=== PATIENT | female | born 1935 | race Hispanic/Latino ===

== ENCOUNTER 2022-10-13 08:59 | Emergency (ER) | payer OTHER | END 2022-10-13 10:39 | disposition home or self-care (01) | LOC: BURERS 08:59 | DX: S20.212A Contusion of left front wall of thorax, initial encounter (principal); I10 Essential (primary) hypertension; W01.0XXA Fall on same level from slipping, tripping and stumbling without subsequent striking against object, initial encounter | CPT/HCPCS: 71250 ==

== ENCOUNTER 2022-12-25 11:19 | Emergency (ER) | payer OTHER | END 2022-12-25 11:46 | disposition home or self-care (01) | LOC: BURERS 11:19 | DX: B34.9 Viral infection, unspecified (principal); I10 Essential (primary) hypertension | CPT/HCPCS: 99283 ==

== ENCOUNTER 2023-09-18 12:15 | Emergency (ER) | payer OTHER ==
[2023-09-18 12:58] LABS: #Basophils 0.1 thou/uL (0.0-0.2); #Eosinphils 0.1 thou/uL (0.0-0.7); #Lymphocytes 1.8 thou/uL (1.20-3.40); #Monocytes 0.4 thou/uL (0.11-0.59); #Neutrophils 2.4 thou/uL (1.40-6.50); %Basophils 1.3 % (0.0-1.0); %Lymphocytes 37.7 % (21.0-51.0); %Monocytes 8.3 % (0.0-10.0); %Neutrophils 50.7 % (42.0-75.0); Hematocrit 39.7 % (36.0-47.0); Hemoglobin 12.6 g/dL (12.0-16.0); Mean Corpuscular HGB CONC 31.6 g/dL (32.0-36.0); Mean Platelet Volume 8.8 fL (7.4-10.4); Platelet Count 180 10x3/uL (130-400); RBC Distribution Width 11.8 % (11.5-14.5); Red Blood Cell (RBC) Count 4.05 mill/uL (4.20-5.40); White Blood Cell (WBC) Count 4.8 10x3/uL (4.8-10.8)
[2023-09-18 13:15] LABS: ALT (SGPT) 15 U/L (8-55); AST (SGOT) 17 U/L (5-34); Albumin 3.8 g/dL (3.4-4.8); Alkaline Phosphatase 53 U/L (40-110); Anion Gap 13 mmol/L (10-20); BUN (Urea Nitrogen) 21 mg/dL (9.8-20.1); Bilirubin, Total 0.5 mg/dL (0.2-1.2); Calc. Creatinine Clearance 0 mL/min (70-130); Calcium 8.6 mg/dL (7.8-10.44); Carbon Dioxide 24 mmol/L (23-31); Chloride 104 mmol/L (98-107); Estimated GFR 78; Globulin 3.4 g/dL (2.4-3.5); Glucose 127 mg/dL (83-110); Potassium 3.9 mmol/L (3.5-5.1); Protein, Total 7.2 g/dL (5.8-8.1); Sodium 137 mmol/L (136-145)
[2023-09-18 13:16] LABS: Troponin I 0.012 ng/mL (< 0.028)
[2023-09-18 13:47] LABS: Bilirubin Negative (Negative); Blood, Urine Trace (Negative); Clarity Cloudy (Clear); Glucose, Urine (Dipstick) Negative (Negative); Ketone, Urine Negative (Negative); Leukocyte Moderate (Negative); Nitrite Negative (Negative); Protein, Urine (Dipstick) Negative (Neg-Trace)
[2023-09-18 13:53] LABS: Bacteria/HPF 3+ HPF (None Seen); CAUTI Indications for Culture Dysuria,urgency,freq; Mucous/LPF 1+ LPF (<2+); RBC/HPF 0-3 HPF (0-3)
[2023-09-18 13:54] LABS: Urine Culture Reflex No No
== END 2023-09-18 15:59 | disposition short-term general hospital (02) ==
LOC: BURERS 12:15
DX: R53.1 Weakness (principal); I10 Essential (primary) hypertension
CPT/HCPCS: 70450; 71045; 80053; 81001; 84484; 85025; 93005

== ENCOUNTER 2023-10-08 10:58 | Emergency (ER) | payer OTHER ==
[2023-10-08] MEDS ORDERED: Dexamethasone 10 MG/ML VIAL ONE (11:54)
[2023-10-08] MEDS ORDERED: Dexamethasone 4 MG TAB ONE (11:55)
[2023-10-08 12:02] LABS: Influenza A by NAA Not Detected (NotDetected); Influenza B by NAA Not Detected (NotDetected); SARS-CoV-2 NAA Rapid Test Not Detected (NotDetected)
== END 2023-10-08 12:33 | disposition home or self-care (01) ==
LOC: BURERS 10:58
DX: J02.9 Acute pharyngitis, unspecified (principal); I10 Essential (primary) hypertension; Z79.82 Long term (current) use of aspirin; Z79.899 Other long term (current) drug therapy
CPT/HCPCS: 87081; 87430; 99284; J1100; J8540

== ENCOUNTER 2025-01-15 09:32 | Emergency (ER) | payer OTHER ==
[2025-01-15] MEDS ORDERED: Ibuprofen 800 MG TAB ONE (09:48)
== END 2025-01-15 10:51 | disposition home or self-care (01) ==
LOC: BURERS 09:32
DX: U07.1 COVID-19 (principal); I10 Essential (primary) hypertension; Z79.899 Other long term (current) drug therapy
CPT/HCPCS: 71046; 87428